=== PATIENT | male | born 1995 | race Two or more races ===

== ENCOUNTER 2017-06-24 23:58 | Emergency (ER) | payer MEDICAID ==
[~2017-06-24] VITALS: Ht 182.9 cm; Wt 111.1 kg
[2017-06-25] MEDS: SODIUM CHLORIDE 0.9% 1,000 ML IV ONE ×2 (00:08→01:14)
[2017-06-25 00:17] LABS: Hematocrit 48.7 % (41.0-53.0); Mean Corpuscular Hemoglobin 33.6 pg (28.0-32.0); Mean Corpuscular Hgb Conc. 34.8 g/dL (32.0-36.0); Mean Corpuscular Volume 96.3 fL (80.0-100.0); Mean Platelet Volume 8.2 fL (6.9-10.8); Platelet Count (auto) 306 10^3/uL (140-450); Red Cell Distribution Width 13.3 % (11.8-14.3); White Blood Cell 12.4 10^3/uL (4.4-10.8)
[2017-06-25 00:21] LABS: Metamyelocytes % 0; Myelocytes % 0; Promyelocytes % 0
[2017-06-25 00:32] LABS: Albumin 4.3 g/dL (3.4-5.0); Anion Gap 14 (5-15); Aspartate Aminotransferase 40 U/L (15-37); BUN/Creatinine Ratio 10.1; Blood Urea Nitrogen 11 mg/dL (7-18); Carbon Dioxide 20 mmol/L (21-32); Chloride 102 mmol/L (98-107); GFR African American 109 mL/min; GFR Non-African American 90 mL/min; Glucose 103 mg/dL (74-106); Sodium 136 mmol/L (136-145)
[2017-06-25 00:34] LABS: Alkaline Phosphatase 94 U/L (45-117); Bilirubin, Total 0.4 mg/dL (0.2-1.0); Total Protein 8.7 g/dL (6.4-8.2)
[2017-06-25 00:55] LABS: Large Platelets FEW; Platelet Estimate Adequate; Reactive Lymphocytes 2
[2017-06-25 05:53] VITALS: BP 135/80
== END 2017-06-25 05:58 | disposition home or self-care (01) ==
LOC: ER 06-25 00:05
DX: R07.9 Chest pain, unspecified (principal); G92 Toxic encephalopathy; F14.10 Cocaine abuse, uncomplicated; F17.210 Nicotine dependence, cigarettes, uncomplicated
CPT/HCPCS: 36415; 71010; 80053; 80307; 80320; 84484; 85007; 85027; 93005; 94761; 96360; 96361; 99285; J7030

== ENCOUNTER 2017-06-25 18:24 | Emergency (ER) | payer MEDICAID ==
[~2017-06-25] VITALS: Ht 182.9 cm; Wt 111.1 kg
[2017-06-25 20:05] LABS: Basophils # (auto) 0.1 uL; Basophils % (auto) 0.7 % (0.0-2.0); Eosinophils # (auto) 0.1 uL; Eosinophils % (auto) 1.3 % (0.0-7.0); Hemoglobin 17.1 g/dL (13.5-17.5); Lymphocytes # (auto) 0.9 uL; Lymphocytes % (auto) 10.9 % (10.0-50.0); Mean Corpuscular Hemoglobin 33.5 pg (28.0-32.0); Mean Corpuscular Hgb Conc. 34.9 g/dL (32.0-36.0); Mean Corpuscular Volume 96.2 fL (80.0-100.0); Mean Platelet Volume 8.4 fL (6.9-10.8); Monocytes # (auto) 0.8 uL; Monocytes % (auto) 9.1 % (0.0-12.0); Neutrophils # (auto) 6.6 uL; Nucleated Red Blood Cells % 0.1 %; Platelet Count (auto) 279 10^3/uL (140-450); Red Cell Distribution Width 13.1 % (11.8-14.3); White Blood Cell 8.5 10^3/uL (4.4-10.8)
[2017-06-25 20:30] LABS: Albumin 4.2 g/dL (3.4-5.0); Alkaline Phosphatase 98 U/L (45-117); Anion Gap 9 (5-15); Aspartate Aminotransferase 40 U/L (15-37); BUN/Creatinine Ratio 7.4; Blood Urea Nitrogen 8 mg/dL (7-18); Calcium 9.4 mg/dL (8.5-10.1); Carbon Dioxide 24 mmol/L (21-32); Chloride 102 mmol/L (98-107); GFR African American 110 mL/min; GFR Non-African American 91 mL/min; Glucose 92 mg/dL (74-106); Potassium 4.3 mmol/L (3.5-5.1); Sodium 135 mmol/L (136-145); Total Protein 8.9 g/dL (6.4-8.2)
[2017-06-26 05:09] VITALS: BP 149/92
== END 2017-06-26 05:10 | disposition left against medical advice (07) ==
LOC: ER 18:27
DX: R07.9 Chest pain, unspecified (principal); Z53.21 Procedure and treatment not carried out due to patient leaving prior to being seen by health care provider
CPT/HCPCS: 36415; 80053; 84484; 85025; 93005

== ENCOUNTER 2017-09-25 13:13 | Emergency (ER) | payer MEDICAID ==
[~2017-09-25] VITALS: Ht 182.9 cm; Wt 111.1 kg
[2017-09-25 13:50] LABS: Hematocrit 51.2 % (41.0-53.0); Hemoglobin 17.5 g/dL (13.5-17.5); Mean Corpuscular Hemoglobin 33.1 pg (28.0-32.0); Mean Corpuscular Hgb Conc. 34.2 g/dL (32.0-36.0); Mean Corpuscular Volume 96.7 fL (80.0-100.0); Platelet Count (auto) 263 10^3/uL (140-450); Red Blood Cells 5.29 10^6/uL (4.5-5.90); Red Cell Distribution Width 13.6 % (11.8-14.3)
[2017-09-25 13:58] LABS: Basophils % (manual) 0 (0.0-2.0); Blast Cells 0; Metamyelocytes % 0; Myelocytes % 0; Promyelocytes % 0; Reactive Lymphocytes 0
[2017-09-25 14:07] LABS: Alanine Aminotransferase 139 U/L (16-61); Albumin 4.1 g/dL (3.4-5.0); Anion Gap 10 (5-15); Aspartate Aminotransferase 79 U/L (15-37); BUN/Creatinine Ratio 5.4; Blood Urea Nitrogen 5 mg/dL (7-18); Calcium 9.1 mg/dL (8.5-10.1); Carbon Dioxide 22 mmol/L (21-32); Chloride 104 mmol/L (98-107); GFR African American 132 mL/min; GFR Non-African American 109 mL/min; Glucose 98 mg/dL (74-106); Potassium 3.8 mmol/L (3.5-5.1); Sodium 136 mmol/L (136-145)
[2017-09-25 14:10] LABS: Alkaline Phosphatase 88 U/L (45-117); Band Neutrophils % (manual) 0; Bilirubin, Total 0.3 mg/dL (0.2-1.0); Eosinophils % (manual) 2 (0-7); Lymphocytes % (manual) 17 (10.0-50.0); Monocytes % (manual) 6 (0-12); Total Protein 8.6 g/dL (6.4-8.2)
[2017-09-25 15:00] VITALS: BP 152/96
== END 2017-09-25 16:04 | disposition home or self-care (01) ==
LOC: ER 13:13
DX: R07.89 Other chest pain (principal); F41.9 Anxiety disorder, unspecified; I10 Essential (primary) hypertension; F17.210 Nicotine dependence, cigarettes, uncomplicated; F12.10 Cannabis abuse, uncomplicated; F14.10 Cocaine abuse, uncomplicated
CPT/HCPCS: 36415; 71046; 80053; 80320; 84484; 85007; 85027; 93005

== ENCOUNTER 2018-01-21 05:40 | Emergency (ER) | payer MEDICAID, OTHER ==
[~2018-01-21] VITALS: Ht 182.9 cm; Wt 108.9 kg
[2018-01-21 05:47] VITALS: BP 158/89
[2018-01-21 06:19] LABS: Urine Bacteria NONE SEEN /hpf (None Seen); Urine Blood Negative /uL (Negative); Urine Specific Gravity 1.002 (1.001-1.035); Urine WBC <1 /hpf (0 - 3)
[2018-01-21 06:36] LABS: Amphetamine Screen, Urine NEGATIVE (NEGATIVE); Barbiturate Scree,Urine NEGATIVE (NEGATIVE); Benzodiazephine Screen, Urine NEGATIVE (NEGATIVE); Cannabinoid Screen, Urine NEGATIVE (NEGATIVE); Cocaine Screen, Urine NEGATIVE (NEGATIVE); Opiate Scree,Urine NEGATIVE (NEGATIVE); Phencyclidine Screen, Urine NEGATIVE (NEGATIVE)
[2018-01-21 07:47] LABS: Basophils # (auto) 0.1 uL; Basophils % (auto) 0.9 % (0.0-2.0); Eosinophils # (auto) 0.1 uL; Eosinophils % (auto) 0.7 % (0.0-7.0); Hematocrit 51.8 % (41.0-53.0); Hemoglobin 17.6 g/dL (13.5-17.5); Lymphocytes # (auto) 1.3 uL; Lymphocytes % (auto) 16.6 % (10.0-50.0); Mean Corpuscular Hemoglobin 32.7 pg (28.0-32.0); Mean Corpuscular Volume 96.2 fL (80.0-100.0); Monocytes # (auto) 0.4 uL; Monocytes % (auto) 4.9 % (0.0-12.0); Neutrophils # (auto) 5.9 uL; Neutrophils % (auto) 76.9 % (37.0-80.0); Nucleated Red Blood Cells % 0.5 %; Platelet Count (auto) 363 10^3/uL (140-450); Red Blood Cells 5.38 10^6/uL (4.5-5.90); Red Cell Distribution Width 13.4 % (11.8-14.3); White Blood Cell 7.6 10^3/uL (4.4-10.8)
[2018-01-21 07:54] LABS: Albumin 4.1 g/dL (3.4-5.0); BUN/Creatinine Ratio 7.8; Calcium 8.5 mg/dL (8.5-10.1); Potassium 3.7 mmol/L (3.5-5.1)
[2018-01-21 07:57] LABS: Bilirubin, Total 0.2 mg/dL (0.2-1.0); Total Protein 8.6 g/dL (6.4-8.2)
== END 2018-01-21 07:19 | disposition left against medical advice (07) ==
LOC: EDBD 05:40 → ER 05:40
DX: F10.10 Alcohol abuse, uncomplicated (principal); S01.81XA Laceration without foreign body of other part of head, initial encounter; Z53.21 Procedure and treatment not carried out due to patient leaving prior to being seen by health care provider; X58.XXXA Exposure to other specified factors, initial encounter; Y93.9 Activity, unspecified; Y92.9 Unspecified place or not applicable; Y99.9 Unspecified external cause status
CPT/HCPCS: 36415; 70450; 80053; 80307; 80320; 81001; 85025

== ENCOUNTER 2018-07-24 22:57 | Emergency (ER) | payer MEDICAID ==
[~2018-07-24] VITALS: Ht 182.9 cm; Wt 68.0 kg
[2018-07-24 23:33] LABS: Basophils # (auto) 0.1 uL; Basophils % (auto) 0.8 % (0.0-2.0); Eosinophils # (auto) 0.2 uL; Eosinophils % (auto) 3.7 % (0.0-7.0); Hematocrit 46.8 % (41.0-53.0); Hemoglobin 15.9 g/dL (13.5-17.5); Lymphocytes # (auto) 1.6 uL; Lymphocytes % (auto) 24.5 % (10.0-50.0); Mean Corpuscular Hemoglobin 31.9 pg (28.0-32.0); Mean Corpuscular Volume 93.9 fL (80.0-100.0); Monocytes # (auto) 0.4 uL; Monocytes % (auto) 5.7 % (0.0-12.0); Neutrophils # (auto) 4.3 uL; Neutrophils % (auto) 65.3 % (37.0-80.0); Nucleated Red Blood Cells % 0.1 %; Platelet Count (auto) 249 10^3/uL (140-450); Red Blood Cells 4.99 10^6/uL (4.5-5.90); Red Cell Distribution Width 13.6 % (11.8-14.3); White Blood Cell 6.6 10^3/uL (4.4-10.8)
[2018-07-24 23:51] LABS: Alanine Aminotransferase 70 U/L (16-61); Albumin 3.9 g/dL (3.4-5.0); Anion Gap 9 (5-15); Aspartate Aminotransferase 28 U/L (15-37); BUN/Creatinine Ratio 9.8; Blood Urea Nitrogen 13 mg/dL (7-18); Calcium 8.5 mg/dL (8.5-10.1); Carbon Dioxide 26 mmol/L (21-32); Chloride 103 mmol/L (98-107); GFR African American 86 mL/min; GFR Non-African American 71 mL/min; Glucose 149 mg/dL (74-106); Potassium 3.9 mmol/L (3.5-5.1); Sodium 138 mmol/L (136-145)
[2018-07-24 23:57] LABS: Alkaline Phosphatase 84 U/L (45-117); Bilirubin, Total 0.2 mg/dL (0.2-1.0); Total Protein 8.2 g/dL (6.4-8.2)
[2018-07-25 01:42] LABS: Urine Bacteria NONE SEEN /hpf (None Seen); Urine Blood Negative /uL (Negative); Urine Specific Gravity 1.007 (1.001-1.035); Urine WBC 2 /hpf (0 - 3)
[2018-07-25 01:49] LABS: Alcohol, Urine < 3.0 mg/dL (0-5); Amphetamine Screen, Urine NEGATIVE (NEGATIVE); Barbiturate Scree,Urine NEGATIVE (NEGATIVE); Benzodiazephine Screen, Urine NEGATIVE (NEGATIVE); Cannabinoid Screen, Urine POSITIVE (NEGATIVE); Cocaine Screen, Urine NEGATIVE (NEGATIVE); Opiate Scree,Urine NEGATIVE (NEGATIVE); Phencyclidine Screen, Urine NEGATIVE (NEGATIVE)
[2018-07-25 02:00] VITALS: BP 122/61
== END 2018-07-25 03:52 | disposition home or self-care (01) ==
LOC: ER 23:01
DX: R07.9 Chest pain, unspecified (principal); F12.10 Cannabis abuse, uncomplicated; F41.9 Anxiety disorder, unspecified; I10 Essential (primary) hypertension; F17.210 Nicotine dependence, cigarettes, uncomplicated; F14.90 Cocaine use, unspecified, uncomplicated; R11.10 Vomiting, unspecified
CPT/HCPCS: 36415; 71046; 80053; 80307; 81001; 84484; 85025; 93005

== ENCOUNTER 2018-08-02 11:36 | Emergency (ER) | payer MEDICAID ==
[~2018-08-02] VITALS: Ht 185.4 cm; Wt 113.4 kg
[2018-08-02 12:48] LABS: Basophils # (auto) 0 uL; Basophils % (auto) 0.6 % (0.0-2.0); Eosinophils # (auto) 0.3 uL; Eosinophils % (auto) 4.8 % (0.0-7.0); Hematocrit 49.3 % (41.0-53.0); Hemoglobin 16.4 g/dL (13.5-17.5); Lymphocytes # (auto) 0.9 uL; Lymphocytes % (auto) 14.3 % (10.0-50.0); Mean Corpuscular Hemoglobin 31.5 pg (28.0-32.0); Mean Corpuscular Hgb Conc. 33.3 g/dL (32.0-36.0); Mean Corpuscular Volume 94.5 fL (80.0-100.0); Monocytes # (auto) 0.4 uL; Monocytes % (auto) 6.6 % (0.0-12.0); Neutrophils # (auto) 4.9 uL; Neutrophils % (auto) 73.7 % (37.0-80.0); Nucleated Red Blood Cells % 0.1 %; Platelet Count (auto) 261 10^3/uL (140-450); Red Blood Cells 5.21 10^6/uL (4.5-5.90); Red Cell Distribution Width 13.3 % (11.8-14.3); White Blood Cell 6.6 10^3/uL (4.4-10.8)
[2018-08-02 13:02] LABS: Alanine Aminotransferase 64 U/L (16-61); Albumin 4.1 g/dL (3.4-5.0); Anion Gap 7 (5-15); Aspartate Aminotransferase 22 U/L (15-37); BUN/Creatinine Ratio 7.6; Blood Urea Nitrogen 8 mg/dL (7-18); Calcium 8.7 mg/dL (8.5-10.1); Carbon Dioxide 28 mmol/L (21-32); Chloride 103 mmol/L (98-107); GFR African American 113 mL/min; GFR Non-African American 93 mL/min; Glucose 85 mg/dL (74-106); Magnesium 2.3 mg/dL (1.6-2.6); Potassium 3.9 mmol/L (3.5-5.1); Sodium 138 mmol/L (136-145)
[2018-08-02 13:07] LABS: Alkaline Phosphatase 88 U/L (45-117); Bilirubin, Total 0.9 mg/dL (0.2-1.0); Total Protein 8.5 g/dL (6.4-8.2)
[2018-08-02 14:30] VITALS: BP 147/93
[2018-08-02] MEDS ORDERED: SODIUM CHLORIDE 0.9% 1,000 ML IV ONE (14:33)
== END 2018-08-02 17:44 | disposition home or self-care (01) ==
LOC: ER 11:38
DX: R07.89 Other chest pain (principal); R11.0 Nausea; F17.210 Nicotine dependence, cigarettes, uncomplicated; F12.90 Cannabis use, unspecified, uncomplicated
CPT/HCPCS: 36415; 71045; 76705; 80053; 83735; 84484; 85025; 93005; 94761; 99284; J7030

== ENCOUNTER 2023-01-16 06:29 | Emergency (ER) | payer MEDICAID ==
[~2023-01-16] VITALS: Ht 182.9 cm; Wt 129.5 kg
[2023-01-16 07:09] VITALS: BP 145/78
[2023-01-16] MEDS ORDERED: KETOROLAC TROMETH 30 MG/ML 1ML VIAL IM ONE (07:30)
[2023-01-16] MEDS ORDERED: IBUP1TAB5 PO (07:43)
[2023-01-16] MEDS ORDERED: CYCL-839 PO (07:43)
== END 2023-01-16 08:13 | disposition home or self-care (01) ==
LOC: ER 06:29
DX: S83.91XA Sprain of unspecified site of right knee, initial encounter (principal); F17.210 Nicotine dependence, cigarettes, uncomplicated; X50.0XXA Overexertion from strenuous movement or load, initial encounter; Y93.89 Activity, other specified; Y92.89 Other specified places as the place of occurrence of the external cause; Y99.8 Other external cause status
CPT/HCPCS: 73562; 96372; 99283; J1885

== ENCOUNTER 2023-01-21 02:10 | Emergency (ER) | payer MEDICAID ==
[~2023-01-21] VITALS: Ht 182.9 cm; Wt 133.0 kg
[~2023-01-21 02:10] MED LIST: CYCL-839 PO; IBUP1TAB5 PO
[2023-01-21 04:18] LABS: Urine Bacteria FEW /hpf (None Seen); Urine Blood Negative /uL (Negative); Urine Specific Gravity 1.005 (1.001-1.035); Urine WBC 8 /hpf (0 - 3)
[2023-01-21 05:09] LABS: Basophils # (auto) 0.1 10 ^3/uL (0-0.2); Basophils % (auto) 0.8 % (0.0-2.0); Eosinophils # (auto) 0.3 10 ^3/uL (0-0.8); Eosinophils % (auto) 2.7 % (0.0-7.0); Hematocrit 43.2 % (41.0-53.0); Hemoglobin 14.9 g/dL (13.5-17.5); Lymphocytes # (auto) 1.3 10 ^3/uL (0.4-5.4); Lymphocytes % (auto) 11.3 % (10.0-50.0); Mean Corpuscular Hemoglobin 32.2 pg (28.0-32.0); Mean Corpuscular Hgb Conc. 34.6 g/dL (32.0-36.0); Mean Corpuscular Volume 93.2 fL (80.0-100.0); Monocytes # (auto) 0.8 10 ^3/uL (0-1.3); Monocytes % (auto) 6.9 % (0.0-12.0); Neutrophils # (auto) 8.8 10 ^3/uL (1.6-8.6); Neutrophils % (auto) 78.3 % (37.0-80.0); Nucleated Red Blood Cells % 0.1 %; Red Blood Cells 4.63 10^6/uL (4.5-5.90); Red Cell Distribution Width 13.3 % (11.8-14.3); White Blood Cell 11.3 10^3/uL (4.4-10.8)
[2023-01-21 05:21] LABS: Albumin 3.7 g/dL (3.4-5.0); Calcium 8.8 mg/dL (8.5-10.1); Potassium 3.7 mmol/L (3.5-5.1)
[2023-01-21 05:26] LABS: Bilirubin, Total 0.6 mg/dL (0.2-1.0)
[2023-01-21] MEDS ORDERED: IBU600T PO (08:39)
[2023-01-21] MEDS ORDERED: METR375C PO (08:40)
[2023-01-21] MEDS ORDERED: cefTRIAXone SOD 1,000 MG VL IM ONE (08:45)
[2023-01-21 08:55] VITALS: BP 133/84
== END 2023-01-21 09:06 | disposition home or self-care (01) ==
LOC: ER 02:10
DX: K52.9 Noninfective gastroenteritis and colitis, unspecified (principal); R10.9 Unspecified abdominal pain; F17.210 Nicotine dependence, cigarettes, uncomplicated; Z88.8 Allergy status to other drugs, medicaments and biological substances
CPT/HCPCS: 36415; 71250; 74176; 80053; 81001; 83690; 85025; 93005; 96372; 99285; J0696